=== PATIENT | female | born 1990 | race Caucasian/White ===

== ENCOUNTER 2022-10-15 22:44 | Emergency (ER) | payer OTHER, SELFPAY ==
[2022-10-15 22:44] VITALS: BP 104/63; PULSE 73; RESP 18; TEMP 36.8; O2SAT 96
--- NOTE | 2022-10-15 23:06 | ED.GENADULT ---
HPI - General Adult General Chief complaint: Unspecified Stated complaint: unspecified Source: patient and family Mode of arrival: ambulatory Limitations: no limitations History of Present Illness HPI narrative: this is a 31-year-old female that presents with pain in the rectal area and itching she says that it started yesterday and she has felt a bump in her rectal area as well with no bleeding, no abdominal pain no dysuria no fever chills. Onset (ago): day(s) Related Data Allergies Allergy/AdvReac Type Severity Reaction Status Date / Time No Known Allergies Allergy Verified 10/15/22 22:50 Review of Systems Review of Systems: All systems reviewed & are unremarkable except as noted in HPI and below [facility] Past Medical History Medical History Patient denies medical problems Exam Const: General: cooperative, healthy appearing, comfortable and no acute distress Neck: Neck: normal visual inspection and full ROM Chest: Chest palpation & inspection: normal inspection of the chest Resp: Effort & Inspection: normal respiratory effort and able to speak in complete sentences Auscultation: clear to auscultation bilaterally Cardio: Palpation: normal PMI Rate: regular rate GI: Inspection: normal to inspection Other: rectal exam shows that there is a hemorrhoid external located approximately 3 o'clock position of the rectal sphincter. It is not thrombosed there was no bleeding. Skin: General skin exam: normal color Neuro: General: oriented to person, oriented to place and oriented to time Extrem: General: normal to inspection and full ROM Psych: Appearance: grossly normal Mental Status: mental status grossly normal Course Course Emergency Course: Rectal exam appears that there is an external hemorrhoid and will send prescription Anusol HC and Colace to her pharmacy. Vital Signs Vital signs: Vital Signs Temperature 36.8 C 10/15/22 22:44 Pulse Rate 73 10/15/22 22:44 Respiratory Rate 18 10/15/22 22:44 Blood Pressure 104/63 10/15/22 22:44 Pulse Oximetry 96 10/15/22 22:44 Oxygen Delivery Room Air 10/15/22 22:44 Temperature 36.8 C 10/15/22 22:44 Pulse Rate 73 10/15/22 22:44 Respiratory Rate 18 10/15/22 22:44 Blood Pressure 104/63 10/15/22 22:44 Pulse Oximetry 96 10/15/22 22:44 Oxygen Delivery Room Air 10/15/22 22:44 Medical Decision Making Vital Signs Vital Signs: Vital Signs Temperature 36.8 C 10/15/22 22:44 Pulse Rate 73 10/15/22 22:44 Respiratory Rate 18 10/15/22 22:44 Blood Pressure 104/63 10/15/22 22:44 Pulse Oximetry 96 10/15/22 22:44 Oxygen Delivery Room Air 10/15/22 22:44 Temperature 36.8 C 10/15/22 22:44 Pulse Rate 73 10/15/22 22:44 Respiratory Rate 18 10/15/22 22:44 Blood Pressure 104/63 10/15/22 22:44 Pulse Oximetry 96 10/15/22 22:44 Oxygen Delivery Room Air 10/15/22 22:44 Critical Care Time Critical Care Time Critical Care Time: No Discharge Plan Discharge Clinical Impression: External hemorrhoid Condition: Stable Instructions: Antibiotic Form, Hemorrhoids (ED) Additional Instructions: use medication as prescribed and if symptoms persist or worsen should follow up with primary care physician Prescriptions: New hydrocortisone [Anusol-HC] 2.5 % cream with perineal applicator 1 applic RECTAL DAILY PRN (Reason: hemorrhoids) 7 Days Qty: 30 0RF Colace Clear 50 mg capsule 50 mg PO BID Qty: 14 0RF Follow-up/Referrals: UNKNOWN,DOCTOR [Primary Care Provider] - Time of Disposition: 23:11
== END 2022-10-15 23:19 | disposition home or self-care (01) ==
PROVIDERS: Emergency Provider Emergency Medicine
DX: K64.4 Residual hemorrhoidal skin tags (principal)
CPT/HCPCS: 99283

== ENCOUNTER 2023-04-06 04:30 | Emergency (ER) | payer OTHER, SELFPAY ==
--- NOTE | 2023-04-06 04:36 | ED.URI ---
HPI - URI/Sore Throat General Chief Complaint: Upper Respiratory Infection Stated Complaint: covid Time Seen by Provider: 04/06/23 04:35 Source: patient Mode of arrival: ambulatory Limitations: no limitations History of Present Illness HPI Narrative: 32-year-old female, who vapes presents to the ER with a 1 day history of -- fever -- sore throat -- body ache -- cough which is nonproductive MD elicited complaint: fever, cough and sore throat Onset (ago): day(s) ( 1 day) Consistency: constant Able to tolerate fluids by mouth: Yes Exacerbating factors: nothing Relieving factors: nothing Associated symptoms: denies other symptoms Treatments prior to arrival: none Related Data Allergies Allergy/AdvReac Type Severity Reaction Status Date / Time No Known Allergies Allergy Verified 04/06/23 04:34 Review of Systems Review of Systems: All systems reviewed & are unremarkable except as noted in HPI and below Constitutional: Constitutional: Reports as per HPI, Reports no additional constitutional complaints and Reports fever(s) Eyes: Eyes: Reports as per HPI and Reports no additional eye complaints ENT: Reports system reviewed and no additional complaints, except as documented, Reports as per HPI and Reports sore throat Cardiovascular: Cardiovascular: Reports as per HPI and Reports no additional cardiovascular complaints Respiratory: Respiratory: Reports as per HPI and Reports no additional respiratory complaints Gastrointestinal: Gastrointestinal: Reports as per HPI Genitourinary: Genitourinary: Reports no additional female genitourinary complaints Musculoskeletal: Musculoskeletal: Reports no additional musculoskeletal complaints and Reports as per HPI Integumentary/Breasts: Skin/Breast: Reports system reviewed and no additional complaints, except as docu and Reports as per HPI Neurologic: Reports system reviewed and no additional complaints, except as documented and Reports as per HPI Psychiatric: Psychiatric: Reports no additional psychiatric complaints and Reports as per HPI Endocrine: Endocrine: Reports no additional endocrine complaints and Reports as per HPI Hematologic/Lymphatic: Hematologic/Lymphatic: Reports no additional hematologic/lymphatic complaints and Reports as per HPI Allergic/Immunologic: Allergic/Immunologic: Reports no additional allergic/immunologic complaints and Reports as per HPI PMF Past Medical History Medical History Patient denies medical problems Exam Const: General: ill appearing Orientation/consciousness: patient oriented x3 Limitations: no limitations HENMT: Head: normal to inspection Ears: external ears normal Face/Nose/Sinus: Normal external nose present Face and sinus: normal facial exam Mouth: Yes Normal oral and palatal mucosa present Throat: posterior oropharynx normal Eyes: Conjunctivae: conjunctivae normal Pupils: Equal, round and reactive pupils present EOM: EOMs intact bilaterally Direct Ophthalmoscopy: no photophobia Neck: Neck: normal visual inspection, no lymphadenopathy and no meningeal signs Chest: Chest palpation & inspection: normal inspection of the chest Resp: Effort & Inspection: normal respiratory effort Auscultation: diminished lung sounds Cardio: Rate: regular rate Rhythm: regular rhythm GI: GI Palp: Yes Soft to palpation Auscultation: normal bowel sounds Other: no tenderness/ rigidity /rebound. : General: Yes no CVA tenderness Back/Spine/Pelvis: Back: no CVA tenderness Skin: General skin exam: normal color Rashes: no rashes Neuro: General: patient oriented x3 Cranial nerves: Yes Nystagmus not present Speech: normal speech Extrem: General: normal to inspection, no clubbing, cyanosis or edema and no pedal edema Psych: Mental Status: mental status grossly normal Affect: normal affect Course Course Emergency Course: Upper respiratory tract infection with s
[2023-04-06 04:38] VITALS: BP 108/72; PULSE 90; RESP 18; TEMP 37.1; O2SAT 100
[2023-04-06] MEDS: KETOROLAC 30 MG/ML VIAL (*BKC) IM (04:47)
[2023-04-06 05:18] LABS: Strep Group A RT-PCR NOT DETECTED (Negative)
[2023-04-06 05:21] LABS: SARS-CoV-2 RNA PCR Positive (Negative)
[2023-04-06 05:22] LABS: Influenza A QL RT-PCR Negative (Negative); Influenza B QL RT-PCR Negative (Negative); RSV RNA, RT-PCR Negative (Negative)
[2023-04-06 05:56] LABS: Hematocrit 38.3 % (35.0-49.0); Mean Corpuscular HGB Conc 33.9 g/dL (32.0-36.0); Mean Corpuscular Hemoglobin 29.7 pg (27.0-31.0); Mean Corpuscular Volume 87.6 fL (78.0-102.0); Platelet Count Result 187 K/mm3 (150-420); Red Blood Count 4.37 M/mm3 (4.20-5.40); Red Cell Distribution Width 11.7 % (11.6-14.4); White Blood Count 3.3 K/mm3 (4.8-10.8)
[2023-04-06 06:06] LABS: Band Neutrophils Percent 0 % (0-6); Basophils Percent Manual 0 % (0-1); Eosinophils Absolute Manual 0.03 K/mm3 (0.02-0.5); Eosinophils Percent Manual 1 % (1-6); Lymphocytes Absolute Manual 0.33 K/mm3 (1.1-4.5); Lymphocytes Percent Manual 10 % (18-44); Monocytes Absolute Manual 0.46 K/mm3 (0.1-0.90); Monocytes Percent Manual 14 % (3-9); Neutrophils Absolute Manual 2.47 K/mm3 (1.7-7.2); Neutrophils Percent Manual 75 % (46-73); Total Cells Counted 100
[2023-04-06 06:07] LABS: Platelet Estimate Adequate (Adequate)
[2023-04-06 06:14] LABS: Alanine Aminotransferase 24 U/L (14-59); Albumin Level 3.6 g/dL (3.4-5.0); Alkaline Phosphatase 39 U/L (46-116); Anion Gap 8 mmol/L (8-16); Aspartate Amino Transferase 12 U/L (15-37); Bilirubin,Total 0.2 mg/dL (0.00-1.00); Blood Urea Nitrogen 6 mg/dL (7-18); Calcium 8.4 mg/dL (8.5-10.1); Carbon Dioxide 29 mmol/L (21-32); Chloride 97 mmol/L (98-108); Estimated CRCL calculation 74 ml/min; Estimated Glomerular Filt Rate > 60; Glucose 86 mg/dL (70-99); Osmolality Calculated 274 mOsm/kg (285-295); Potassium 3.3 mmol/L (3.5-5.1); Sodium 134 mmol/L (136-145); Total Protein 6.8 g/dL (6.4-8.2)
== END 2023-04-06 07:06 | disposition home or self-care (01) ==
PROVIDERS: Emergency Provider Internal Medicine Critical Care Medicine
DX: U07.1 COVID-19 (principal); F17.290 Nicotine dependence, other tobacco product, uncomplicated
CPT/HCPCS: 36415; 80053; 85025; 87637; 87651; 96372; 99283; J1885

== ENCOUNTER 2025-03-21 20:51 | Emergency (ER) | payer OTHER, SELFPAY ==
--- NOTE | ~2025-03-21 | CT_ITS ---
EXAMINATION: CT hip RT wo con DATE: 03/21/2025 22:43 INDICATION: Anterior right hip pain. TECHNIQUE: Computed tomography (CT) of the right hip was performed without intravenous contrast. Automated exposure control and iterative reconstruction technique were employed. The dose-length product was 143.16 mGy-cm. COMPARISON: Right hip radiographs 03/21/25 FINDINGS: Alignment is normal. No fracture. There is mild osteoarthritis of sacroiliac joint and hip joint. IMPRESSION: 1. Mild polyarticular osteoarthritis. Reviewed, dictated and finalized at location E. [employer] ACCOUNT MANAGER
--- NOTE | ~2025-03-21 | XR_ITS ---
EXAMINATION: XR hip RT 2V w AP pelvis DATE: 03/21/2025 21:31 INDICATION: Right hip pain after walking. TECHNIQUE: Pelvis and 2 views of the right hip were obtained. COMPARISON: None. FINDINGS: No acute bony lesions of the pelvis and right hip. Hip joint space is normal. Soft tissues are unremarkable. IMPRESSION: 1. No plain radiographic abnormalities of the pelvis and right hip. If symptoms are significant and persistent MRI is suggested Reviewed, dictated and finalized at location T. BASTING MACHINE OPERATOR
[2025-03-21 20:52] VITALS: BP 115/74; PULSE 83; RESP 20; TEMP 36.3; O2SAT 95
--- NOTE | 2025-03-21 20:58 | PC.NURSE ---
ASKED PATIENT TO CHANGE INTO GOWN SO MD CAN ASSESS RIGHT HIP/GROIN AREA
--- NOTE | 2025-03-21 21:13 | ED_ITS ---
HPI - Extremity Injury (Lower) General Chief Complaint: Extremity Injury, Lower Stated Complaint: hip pain Time Seen by Provider: 03/21/25 20:57 Source: patient and family Mode of arrival: ambulatory Limitations: no limitations History of Present Illness HPI Narrative: Patient is a 34-year-old female with a right hip pain for the past day. She walked about 2-3 miles today and the pain started thereafter. Patient is unable to bear weight on this due to the pain in the right hip. No particular injury. She did have overuse with walking 3 mi today. complaint: other (Right hip pain in the groin region) Onset (ago): day(s) (1) Type of Injury: other (No definite injury) Place: home and street/outdoors Severity: severe Severity scale (1-10): 7 Relieving factors: nothing Exacerbating factors: weight bearing, movement and palpation Context: other (Unknown injury to the right hip after a 2-3 mi walk today) Associated symptoms: numbness Other symptoms: none Treatments prior to arrival: other (None) Related Data Allergies Allergy/AdvReac Type Severity Reaction Status Date / Time No Known Allergies Allergy Verified 03/21/25 20:56 Review of Systems Review of Systems: All systems reviewed & are unremarkable except as noted in HPI and below Constitutional: Constitutional: Reports no additional constitutional complaints Eyes: Eyes: Reports no additional eye complaints ENT: Reports system reviewed and no additional complaints, except as documented Cardiovascular: Cardiovascular: Reports no additional cardiovascular complaints Respiratory: Respiratory: Reports no additional respiratory complaints Gastrointestinal: Gastrointestinal: Reports no additional gastrointestinal c omplaints Genitourinary: Genitourinary: Reports no additional female genitourinary complaints Musculoskeletal: Musculoskeletal: Reports no additional musculoskeletal complaints Integumentary/Breasts: Skin/Breast: Reports system reviewed and no additional complaints, except as docu Neurologic: Reports system reviewed and no additional complaints, except as documented Psychiatric: Psychiatric: Reports no additional psychiatric complaints Endocrine: Endocrine: Reports no additional endocrine complaints Hematologic/Lymphatic: Hematologic/Lymphatic: Reports no additional hematologic/lymphatic complaints Allergic/Immunologic: Allergic/Immunologic: Reports no additional allergic/immunologic complaints PMFSH Past Medical History Medical History Patient denies medical problems Exam Const: General: healthy appearing Nutritional Appearance: well nourished Orientation/consciousness: patient oriented x3 Limitations: no limitations HENMT: Head: normal to inspection Ears: external ears normal Face/Nose/Sinus: Normal external nose present Eyes: Conjunctivae: conjunctivae normal Pupils: Equal, round and reactive pupils present EOM: EOMs intact bilaterally Neck: Neck: normal visual inspection Chest: Chest palpation & inspection: normal inspection of the chest Resp: Effort & Inspection: normal respiratory effort and not labored Auscultation: clear to auscultation bilaterally and no crackles Cardio: Rate: regular rate Rhythm: regular rhythm Heart sounds: no murmurs GI: Inspection: non-distended GI Palp: Yes Soft to palpation and No Tenderness to palpation present (GI) Auscultation: normal bowel sounds : General: Yes bladder normal to palpation Back/Spine/Pelvis: Back: no CVA tenderness Skin: General skin exam: normal color Rashes: no rashes Wounds: no wounds Other: Right groin does not have any major enlarged lymph nodes there are so couple small ones only noted; no vaginal complaints or urinary complaints or wounds on the leg Neuro: General: patient oriented x3 and moves all extremities Cranial nerves: Yes Nystagmus not present Speech: normal speech Gait exam (Neuro): Normal gait present Extrem: General: normal to inspection, no clubbing, cyanosis or edema and no pedal edema Other: Tender right hip in the groin region more so to deep palpation; the pain is with range of motion and lifting of the lower extremity Psych: Mental Status: mental status grossly normal Affect: normal affect Attitude: cooperative Course Vital Signs Vital signs: Vital Signs Temperature 36.3 C L 03/21/25 20:52 Pulse Rate 83 03/21/25 20:52 Respiratory Rate 20 03/21/25 20:52 Blood Pressure 115/74 03/21/25 20:52 Pulse Oximetry 95 03/21/25 20:52 Oxygen Delivery Room Air 03/21/25 20:52 Temperature 36.3 C L 03/21/25 20:52 Pulse Rate 83 03/21/25 20:52 Respiratory Rate 20 03/21/25 20:52 Blood Pressure 115/74 03/21/25 20:52 Pulse Oximetry 95 03/21/25 20:52 Oxygen Delivery Room Air 03/21/25 20:52 MDM MDM Narrative Medical decision making narrative: Patient is a 34-year-old female with a right hip pain significantly today after walking many miles. X-ray. Toradol. [place]. Differential Diagnosis Differential Diagnosis: Right hip bursitis, right hip Imaging Data Attestation: I personally reviewed and interpreted this imaging study as follows: Radiologist's impression: ITS Impressions Hip/Pelvis X-Ray 03/21/25 21:31 IMPRESSION: 1. No plain radiographic abnormalities of the pelvis and right hip. If symptoms are significant and persistent MRI is suggested CT scan right hip shows no acute findings and unremarkable bones; further consider MRI if continued problems Discharge Plan Discharge Clinical Impression: Bursitis of hip, right Qualifiers: Hip bursitis location: unspecified Qualified Code(s): M70.71 - Other bursitis of hip, right hip Patient Disposition: Home Condition: Stable Instructions: Antibiotic Form Additional Instructions: Please follow-up with the primary doctor in the next week. You will need MRI of the right hip if continued problems. Patient Language: Slovenian Prescriptions: New hydrocodone-acetaminophen 10-325 mg tablet 1 tablet PO Q8H PRN (Reason: pain) Qty: 20 0RF No Action Paxlovid 300 mg (150 mg x 2)-100 mg tablets,dose pack See Rx Instructions .ROUTE .COMPLEX Qty: 30 0RF Rx Instructions: take TWO 150 mg tablets of nirmatrelvir with ONE 100 mg tablet of ritonavir twice daily for 5 days Follow-up/Referrals: Lisa Nunez MD [Physician, Internal Medicine] Time of Disposition: 23:10
[2025-03-21] MEDS: KETOROLAC (*BKC) 60 MG/2 ML VIAL IM (21:15)
--- NOTE | 2025-03-21 21:30 | PC.NURSE ---
PATIENT WAS TAKEN VIA STRETCHER TO RADIOLOGY AND BACK TO ROOM. WARM BLANKET WAS PROVIDED. CALL LIGHT IN REACH
[2025-03-21] MEDS: HYDROcodone/acetaminophen (*CRX) 10-325 MG TABLET 1 TAB PO (21:57)
--- NOTE | 2025-03-21 22:16 | PC.NURSE ---
PATIENT MEDICATED FOR PAIN PER MAR. PATIENT REPORTS THAT SHE HAS DIFFICULTY RAISING HER RIGHT LEG. ITS JUST FEELS HEAVY AND IT HURTS IN MY PELVIC/HIP AREA. RESTING ON STRETCHER WITH HER MOTHER AT HER SIDE. CALL LIGHT IN REACH.
--- NOTE | 2025-03-21 22:33 | PC.NURSE ---
PATIENT TRANSPORTED TO RADIOLOGY VIA STRETCHER
--- NOTE | 2025-03-21 23:05 | PC.NURSE ---
DR RESENDIZ NOTIFIED THAT CT HAS RESULTED.
[2025-03-21 23:24] VITALS: BP 118/72; PULSE 68; RESP 18; O2SAT 100
== END 2025-03-21 23:24 | disposition home or self-care (01) ==
PROVIDERS: Emergency Provider Emergency Medicine; Referring Provider Internal Medicine
DX: M70.71 Other bursitis of hip, right hip (principal)
CPT/HCPCS: 73502; 73700; 96372; 99284; A9270; J1885